=== PATIENT | male | born 1985 | race Caucasian/White ===

== ENCOUNTER 2022-12-12 21:33 | Emergency (ER) | payer OTHER ==
[~2022-12-12] VITALS: Ht 175.3 cm; Wt 80.7 kg
--- NOTE | 2022-12-12 22:42 | NUR ---
Patient being evaluated by physician
[2022-12-12] MEDS ORDERED: KETOROLAC 60 MG/2 ML VIAL IM ONE (22:45)
[2022-12-12 23:08] VITALS: BP 123/81
[2022-12-12] MEDS ORDERED: LID5T TP (23:27)
[2022-12-12] MEDS ORDERED: IBUP-2213 PO (23:27)
[2022-12-12] MEDS ORDERED: ACET-9527 PO (23:27)
[2022-12-12 23:41] VITALS: BP 123/81
--- NOTE | 2022-12-12 23:41 | NUR ---
Patient discharged with v/s stable. Written and verbal after care instructions given and explained. Patient alert, oriented and verbalized understanding of instructions. Ambulatory with steady gait. All questions addressed prior to discharge. ID band removed. Patient advised to follow up with PMD. Rx of NORCO, IBUPROFEN AND LIDODERM given. Patient educated on indication of medication including possible reaction and side effects. Opportunity to ask questions provided and answered.
== END 2022-12-12 23:41 | disposition home or self-care (01) ==
LOC: MED 21:33
DX: S39.012A Strain of muscle, fascia and tendon of lower back, initial encounter (principal); Z79.899 Other long term (current) drug therapy; Z79.1 Long term (current) use of non-steroidal anti-inflammatories (NSAID); V89.2XXA Person injured in unspecified motor-vehicle accident, traffic, initial encounter; Y93.89 Activity, other specified; Y92.410 Unspecified street and highway as the place of occurrence of the external cause; Y99.8 Other external cause status
CPT/HCPCS: 72100; 96372; 99283; J1885